=== PATIENT | female | born 1995 | race American Indian/Alaskan Native ===

== ENCOUNTER 2020-11-05 21:43 | Emergency (ER) | payer SELFPAY ==
--- NOTE | 2020-11-05 23:12 | XRay Report ---
CHEST PA AND LATERAL VIEWS INDICATION: chestpain and MIGUEL. COMPARISON: None FINDINGS: Support devices: None Heart: Normal Lungs/Pleura: No acute pulmonary or pleural findings. IMPRESSION: 1. No active disease. Signer Name: Phoenix Chopra MD Signed: 11/05/2020 11:08 PM Workstation Name: [id number]
[2020-11-06] MEDS ORDERED: CYCLOBENZAPRINE 10 MG TAB PO ONE (01:10)
[2020-11-06] MEDS ORDERED: IBUPROFEN 600 MG TAB PO ONE (01:10)
--- NOTE | 2020-11-06 01:25 | Emergency Department Report ---
ED General Adult HPI - General Chief complaint: Chest Pain Stated complaint: RIB PAIN;MIGUEL Source: patient Mode of arrival: Ambulatory Limitations: No Limitations - History of Present Illness Initial comments: Patient is a nulliparous 25-year-old -[place] female with no past medical history who presents to the ED with complaint of acute onset persistent left lateral chest wall pain after heavy lifting at work 2 days ago. Patient states that the pain has been constant and persistent and is worse with any movement or palpation of the area. Patient states that she took 800 mg ibuprofen about 7 hours ago prior to arrival in the ED and now the pain is significantly improved. Patient denies shortness of breath, dizziness, syncope, fall, traumatic injury, fever, chills, cough, nausea and vomiting, neck pain, back pain, change in vision, sore throat, hemoptysis or diaphoresis and palpitations. MD Complaint: Left lateral chest wall pain -: Sudden, days(s) (2) Location: chest (Left lateral chest wall pain) Radiation: non-radiation Severity scale (0 -10): 7 Quality: aching, sharp Consistency: constant Improves with: none Worsens with: movement Associated Symptoms: denies other symptoms, chest pain (Left lateral chest wall pain). denies: confusion, cough, diaphoresis, fever/chills, headaches, loss of appetite, malaise, nausea/vomiting, rash, seizure, shortness of breath, syncope, weakness - Related Data Previous Rx's Medication Instructions Recorded Last Taken Type Baclofen 20 mg PO Q12H PRN #20 tablet 11/06/20 Unknown Rx Naproxen 500 mg PO Q12H PRN #24 tablet 11/06/20 Unknown Rx Allergies Allergy/AdvReac Type Severity Reaction Status Date / Time No Known Allergies Allergy Unverified 11/05/20 22:40 ED Review of Systems ROS: Stated complaint: RIB PAIN;MIGUEL Other details as noted in HPI Constitutional: denies: chills, fever Eyes: denies: eye pain, eye discharge, vision change ENT: denies: ear pain, throat pain Respiratory: denies: cough, shortness of breath, wheezing Cardiovascular: chest pain (Left lateral chest wall pain). denies: palpitations Endocrine: no symptoms reported Gastrointestinal: denies: abdominal pain, nausea, diarrhea Genitourinary: denies: urgency, dysuria, discharge Musculoskeletal: denies: back pain, joint swelling, arthralgia Skin: denies: rash, lesions Neurological: denies: headache, weakness, paresthesias Psychiatric: denies: anxiety, depression Hematological/Lymphatic: denies: easy bleeding, easy bruising ED Past Medical Hx - Past Medical History Previous Medical History?: No - Surgical History Past Surgical History?: No - Social History Smoking Status: Never Smoker Substance Use Type: None - Medications Home Medications: Home Medications Medication Instructions Recorded Confirmed Last Taken Type Baclofen 20 mg PO Q12H PRN #20 tablet 11/06/20 Unknown Rx Naproxen 500 mg PO Q12H PRN #24 tablet 11/06/20 Unknown Rx ED Physical Exam - General Limitations: No Limitations General appearance: alert, in no apparent distress - Head Head exam: Present: atraumatic, normocephalic, normal inspection - Eye Eye exam: Present: normal appearance, PERRL, EOMI Pupils: Present: normal accommodation - ENT ENT exam: Present: normal exam, normal orophraynx, mucous membranes moist, TM's normal bilaterally, normal external ear exam - Neck Neck exam: Present: normal inspection, full ROM - Respiratory Respiratory exam: Present: normal lung sounds bilaterally, chest wall tenderness (Palpable reproducible left lateral chest wall tenderness). Absent: respiratory distress, wheezes, rales, rhonchi, accessory muscle use - Cardiovascular Cardiovascular Exam: Present: regular rate, normal rhythm, normal heart sounds. Absent: systolic murmur, diastolic murmur, rubs, gallop - GI/Abdominal GI/Abdominal exam: Present: soft, normal bowel sounds. Absent: distended, tenderness, guarding, hyperactive bowel sounds, hypoactive bowel sounds, organomegaly - Extremities Exam Extremities exam: Present: normal inspection, full ROM, normal capillary refill - Back Exam Back exam: Present: normal inspection, full ROM. Absent: tenderness, CVA tenderness (R), CVA tenderness (L), muscle spasm, paraspinal tenderness, vertebral tenderness - Neurological Exam Neurological exam: Present: alert, oriented X3, CN II-XII intact, normal gait, reflexes normal - Psychiatric Psychiatric exam: Present: normal affect, normal mood - Skin Skin exam: Present: warm, dry, intact, normal color. Absent: rash ED Course Vital Signs 11/05/20 22:29 Temperature 99.0 F Pulse Rate 79 Respiratory 18 Rate Blood Pressure 132/72 O2 Sat by Pulse 100 Oximetry ED Medical Decision Making - Radiology Data Radiology results: report reviewed, image reviewed [facility] [address] [place] [address] XRay Report Signed Patient: JASMINA PRAKASH MR#: [id number] : 1995 Acct:[id number] Age/Sex: 25 / F ADM Date: 11/05/20 Loc: ED Attending Dr: Ordering Physician: FLORY HEADLEY MD Date of Service: 11/05/20 Procedure(s): XR chest routine 2V Accession Number(s): [id number] cc: ED MD KAYODE Fluoro Time In Minutes: CHEST PA AND LATERAL VIEWS INDICATION: chestpain and MIGUEL. COMPARISON: None FINDINGS: Support devices: None Heart: Normal Lungs/Pleura: No acute pulmonary or pleural findings. IMPRESSION: 1. No active disease. Signer Name: Phoenix Chopra MD Signed: 11/05/2020 11:08 PM Workstation Name: [id number] Transcribed By: TM Dictated By: Phoenix Chopra MD Electronically Authenticated By: Phoenix Chopra MD Signed Date/Time: 11/05/202307 DD/ 06 TD/TT: - Medical Decision Making This is a nulliparous 25-year-old -[place] female with no past medical history who presents to the ED with complaint of acute onset persistent left lateral chest wall pain after heavy lifting at work 2 days ago. Patient states that the pain has been constant and persistent and is worse with any movement or palpation of the area. Patient states that she took 800 mg ibuprofen about 7 hours ago prior to arrival in the ED and now the pain is significantly improved. In the ED, patient is alert and oriented x3 and is not in any distress. Chest x-ray shows no acute cardiopulmonary abnormalities or pneumonitis, pneumothorax, pleural effusion or rib fracture. Patient was treated again for pain in the ED and on reevaluation, patient's pain is well controlled medications. Patient will discharge home on pain medications, with a stable vital signs. Patient was discharged home and advised to follow-up with her primary care physician in 5 to 7 days for reevaluation or return to the ED immediately if symptoms get worse. - Differential Diagnosis Chest wall muscle strain; costochondritis; pleural effusion; rib fractures Critical care attestation.: If time is entered above; I have spent that time in minutes in the direct care of this critically ill patient, excluding procedure time. ED Disposition Clinical Impression: Muscle strain of anterior chest wall, Acute costochondritis Disposition: TO HOME OR SELFCARE Is pt being admited?: No Does the pt Need Aspirin: No Condition: Stable Instructions: Costochondritis, [id number], Muscle Strain, [id number] Additional Instructions: The x-ray of your chest shows no acute rib fractures or subluxations, pneumonitis, cardiopulmonary abnormalities, pleural effusion or pneumothorax. Therefore your symptoms are likely due to muscle strain of your chest wall. Therefore take pain medications as needed with food, drink plenty of fluids and follow-up with your primary care physician in 5 to 7 days for reevaluation. Return to the ED immediately if symptoms get worse. Prescriptions: Baclofen 20 mg PO Q12H PRN #20 tablet PRN Reason: Muscle Spasm Naproxen 500 mg PO Q12H PRN #24 tablet PRN Reason: Pain , Severe (7-10) Referrals: [facility] [Provider Group] - 3-5 Days Time of Disposition: :29 Print Language: KYRGYZ
[2020-11-06 02:55] VITALS: BP 128/69
--- NOTE | 2020-11-07 11:10 | Electrocardiograph Report ---
[facility] Test Date: 2020-11-05 Test Time: 22:38:33 Pat Name: JASMINA PRAKASH Department: Room: Gender: F Engineering Consultant: YOLANDA : 1995 Requested By: ED DOC Order Number: [id number] Reading MD: Perez Samson Measurements Intervals [place] Rate: 66 P: 50 WY: 139 QRS: 34 QRSD: 76 T: 15 QT: 400 QTc: 420 Interpretive Statements Sinus arrhythmia Probable left atrial enlargement No previous ECG available for comparison Electronically Signed On 11-07-2020 8:10:31 PDT by Perez Samson
== END 2020-11-06 02:58 | disposition home or self-care (01) ==
LOC: ED 21:43
DX: S29.011A Strain of muscle and tendon of front wall of thorax, initial encounter (principal); Z79.899 Other long term (current) drug therapy; X50.0XXA Overexertion from strenuous movement or load, initial encounter; Y93.89 Activity, other specified; Y92.89 Other specified places as the place of occurrence of the external cause; Y99.8 Other external cause status
CPT/HCPCS: 71046; 93005; 99282

== ENCOUNTER 2021-11-09 11:57 | Emergency (ER) | payer SELFPAY ==
[2021-11-09] MEDS ORDERED: FAMOTIDINE 20 MG TAB PO ONE (12:59)
[2021-11-09] MEDS ORDERED: diphenhydrAMINE 25 MG/10 ML ORAL LIQUID PO ONE (12:59)
[2021-11-09] MEDS ORDERED: predniSONE 20 MG TAB PO NR (13:00)
--- NOTE | 2021-11-09 13:00 | Emergency Department Report ---
ED Allergic Reaction HPI - General Stated complaint: HEAD SWOLLEN Source: patient Mode of arrival: Ambulatory Limitations: No Limitations - History of Present Illness Initial Comments: Patient comes to the emergency room with an allergic reaction to hair dye. It started yesterday when she dyed her hair. She has had the same reaction in the past. Patient has pruritic macular rash of her head. Minor facial swelling. Vital signs are stable. Oxygenation is fine. ABCs intact. MD Complaint: allergic reaction -: Sudden, days(s) Exposure: other Symptoms: rash, itching, facial swelling Severity: mild Treatment Prior to Arrival: benadryl Previous Allergy History: other - Related Data Previous Rx's Medication Instructions Recorded Last Taken Type Famotidine [Pepcid] 20 mg PO DAILY #30 tablet 11/09/21 Unknown Rx diphenhydrAMINE [Benadryl CAP] 25 mg PO Q8HR PRN #20 capsule 11/09/21 Unknown Rx predniSONE [Deltasone] 20 mg PO DAILY #5 tablet 11/09/21 Unknown Rx Allergies Allergy/AdvReac Type Severity Reaction Status Date / Time No Known Allergies Allergy Verified 11/09/21 12:59 ED Review of Systems ROS: Stated complaint: HEAD SWOLLEN Other details as noted in HPI Comment: All other systems reviewed and negative ED Past Medical Hx - Past Medical History Previous Medical History?: No - Surgical History Past Surgical History?: No - Family History Family history: no significant - Social History Smoking Status: Never Smoker Substance Use Type: None - Medications Home Medications: Home Medications Medication Instructions Recorded Confirmed Last Taken Type Famotidine [Pepcid] 20 mg PO DAILY #30 tablet 11/09/21 Unknown Rx diphenhydrAMINE [Benadryl CAP] 25 mg PO Q8HR PRN #20 capsule 11/09/21 Unknown Rx predniSONE [Deltasone] 20 mg PO DAILY #5 tablet 11/09/21 Unknown Rx ED Physical Exam - General General appearance: alert, in no apparent distress - Head Head exam: Present: atraumatic, normocephalic - Eye Eye exam: Present: normal appearance - ENT ENT exam: Present: mucous membranes moist - Neck Neck exam: Present: normal inspection - Respiratory Respiratory exam: Present: normal lung sounds bilaterally. Absent: respiratory distress - Cardiovascular Cardiovascular Exam: Present: regular rate, normal rhythm. Absent: systolic murmur, diastolic murmur, rubs, gallop - GI/Abdominal GI/Abdominal exam: Present: soft, normal bowel sounds - Extremities Exam Extremities exam: Present: normal inspection - Back Exam Back exam: Present: normal inspection - Neurological Exam Neurological exam: Present: alert, oriented X3 - Psychiatric Psychiatric exam: Present: normal affect, normal mood - Skin Skin exam: Present: warm, dry, intact, normal color. Absent: rash ED Course Vital Signs 11/09/21 13:03 Temperature 98.4 F Pulse Rate 55 L Respiratory 18 Rate Blood Pressure 130/64 [Right] O2 Sat by Pulse 99 Oximetry ED Medical Decision Making - Medical Decision Making Medicated with prednisone, Pepcid and Benadryl in the ER. ABCs intact vital signs stable Patient has been instructed not to use hair dye again. She has been told that these allergies can worsen every time and that she may stop breathing. Discharge home with discharge plan of care including medications, follow-up, diet and activity. She verbalizes understanding Vital Signs 11/09/21 13:03 Temperature 98.4 F Pulse Rate 55 L Respiratory 18 Rate Blood Pressure 130/64 [Right] O2 Sat by Pulse 99 Oximetry - Differential Diagnosis ALLERGIC REACTION Critical care attestation.: If time is entered above; I have spent that time in minutes in the direct care of this critically ill patient, excluding procedure time. ED Disposition Clinical Impression: Allergic reaction Qualifiers: Encounter type: initial encounter Qualified Code(s): T78.40XA - Allergy, unspec ified, initial encounter Disposition: HOME / SELF CARE / HOMELESS Is pt being admited?: No Does the pt Need Aspirin: No Condition: Stable Instructions: Allergies, Adult, [id number] Additional Instructions: Do not use hair dyes again. Medications as ordered today. Follow-up with primary care next week to make sure this is better. I have given you referral below Prescriptions: diphenhydrAMINE [Benadryl CAP] 25 mg PO Q8HR PRN #20 capsule PRN Reason: Itching predniSONE [Deltasone] 20 mg PO DAILY #5 tablet Famotidine [Pepcid] 20 mg PO DAILY #30 tablet Referrals: MANE ERWIN MD [Staff Physician] - 3-5 Days Time of Disposition: 13:05
[2021-11-09 13:04] VITALS: BP 130/64
== END 2021-11-09 13:55 | disposition home or self-care (01) ==
LOC: ED 11:57
DX: T78.40XA Allergy, unspecified, initial encounter (principal); X58.XXXA Exposure to other specified factors, initial encounter
CPT/HCPCS: 99282; Q0163